=== PATIENT | female | born 1995 | race Caucasian/White ===

== ENCOUNTER 2019-12-19 15:16 | Emergency (ER) | payer OTHER, SELFPAY ==
[2019-12-19 15:26] VITALS: BP 137/72; PULSE 102; RESP 16; TEMP 37.2; O2SAT 100
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
== END 2019-12-19 15:50 | disposition home or self-care (01) ==
PROVIDERS: Emergency Provider Nurse Practitioner Family
DX: S63.602A Unspecified sprain of left thumb, initial encounter (principal); X50.9XXA Other and unspecified overexertion or strenuous movements or postures, initial encounter
CPT/HCPCS: 99202; G0463